=== PATIENT | female | born 1980 | race Caucasian/White ===

== ENCOUNTER 2018-06-25 08:25 | Emergency (ER) | payer BC ==
[2018-06-25 08:47] VITALS: TEMP 97.6
[2018-06-25] MEDS ORDERED: Lidocaine 2% Inj (20ml) INFIL ONE (09:28)
[2018-06-25] MEDS ORDERED: Lidocaine 2% Inj (20ml) ONE (09:35)
[2018-06-25 10:55] VITALS: BP 105/75; PULSE 75; RESP 16; O2SAT 99
--- NOTE | 2018-06-25 12:46 | ED PDOC ---
Upper Extremity Pain/Injury Time Seen by Provider: 06/25/18 09:05 Chief Complaint (Nursing): Upper Extremity Problem/Injury Chief Complaint (Provider): Laceration on Right Hand History Per: Patient History/Exam Limitations: no limitations Onset/Duration Of Symptoms: Hrs Current Symptoms Are (Timing): Still Present Quality: "Pain" Additional Complaint(s): 37 year old female presents to the ED for an evaluation of right hand injury onset today morning. Patient reports she sustained a laceration on her right hand after she cut her hand on the sharp part of the locker. The bleeding stopped and she denies of any other injuries, weakness, numbness or tingling. Otherwise, her vaccinations are UTD. PMD: [place] Past Medical History Reviewed: Historical Data, Nursing Documentation, Vital Signs Vital Signs: Last Vital Signs Temp 97.6 F 06/25/18 08:46 Pulse 75 06/25/18 10:55 Resp 16 06/25/18 10:55 BP 105/75 06/25/18 10:55 Pulse Ox 99 06/25/18 10:55 - Medical History PMH: No Chronic Diseases - Surgical History Surgical History: (1x) - Family History Family History: States: Unknown Family Hx - Social History Current smoker - smoking cessation education provided: No Alcohol: None Drugs: Denies - Home Medications Home Medications: Ambulatory Orders Medication Instructions Recorded RX: No Known Home Med 06/25/18 - Allergies Allergies/Adverse Reactions: Allergies Allergy/AdvReac Type Severity Reaction Status Date / Time No Known Allergies Allergy Verified 06/25/18 08:40 Review of Systems ROS Statement: Except As Marked, All Systems Reviewed And Found Negative Constitutional: Negative for: Fever, Chills Respiratory: Negative for: Cough, Shortness of Breath Skin: Positive for: Other (laceraiton on right hand) Neurological: Negative for: Weakness, Numbness Physical Exam - Reviewed Nursing Documentation Reviewed: Yes Vital Signs Reviewed: Yes - Physical Exam Appears: Positive for: Well, Non-toxic, No Acute Distress Head Exam: Positive for: ATRAUMATIC, NORMAL INSPECTION, NORMOCEPHALIC Skin: Positive for: Normal Color, Warm, Dry. Negative for: Rash Eye Exam: Positive for: Normal appearance, EOMI Extremity: Positive for: Capillary Refill (normal), Other (on right hand there is 2cm linear laceration on dorsum aspect of right hands, no bleeding). Negative for: Deformity Neurologic/Psych: Positive for: Alert, Oriented (x3). Negative for: Motor/Sensory Deficits - ECG O2 Sat by Pulse Oximetry: 99 (RA) Pulse Ox Interpretation: Normal Medical Decision Making Medical Decision Making: Time: 927 Impression: laceration on right hand Plan: --Lidocaine 2% 20ml vial 10ml --Reevaluation PROCEDURE: LACERATION REPAIR Performed by the emergency provider Time out: 105 Location: right hand Length: 2 cm Description: clean wound edges, no foreign bodies Distal CMS: Normal. No deficits. Neurovascularly intact. Anesthesia: Lidocaine 2% Preparation: The wound was cleaned with NS and [place]. The area was prepped and draped in the usual sterile fashion. Exploration: The wound was explored and no foreign bodies were found. Procedure: The wound was closed with 4:0 nylon. There was {good / appropriate / adequate / loose} approximation. In total, 2 were used. Post-Procedure: Good closure and hemostasis. The patient tolerated the procedure well and there were no complications. CSM remains intact. Post procedure dressing applied. Scribe Attestation: Documented by Licha Ortega, acting as a scribe for Travis Andres MD. Provider Scribe Attestation: All medical record entries made by the Scribe were at my direction and personally dictated by me. I have reviewed the chart and agree that the record accurately reflects my personal performance of the history, physical exam, medical decision making, and the department course for this patient. I have also personally directed, reviewed, and agree with the discharge instructions and disposition. Procedures - Time-Out Type of Procedure: Laceration Repair Site of Procedure: dorsum of right hand Correct Patient: Yes Correct Procedure: Yes Correct Site Marked: Yes Physician Name: Dmitry - Laceration/Wound Repair Right Dorsal Hand Wound Length (cm): 2 Wound's Depth, Shape: linear Wound Explored: clean Suture Size/Type: nylon Number of Sutures: 2 Deep Layer Suture Size/Type: 4:0 Wound Complexity: Simple Disposition - Clinical Impression Clinical Impression: Laceration of hand - Patient ED Disposition Is Patient to be Admitted: No Counseled Patient/Family Regarding: Studies Performed, Diagnosis, Need For Followup - Disposition Referrals: [facility] [Outside] Disposition: Routine/Home Disposition Time: 10:55 Condition: GOOD Additional Instructions: Follow up with your PCP for suture removal in 7-10 days DEVANTE JIMENEZ, thank you for letting us take care of you today. Your provider was Travis Andres MD and you were treated for RT HAND INJURY. The emergency medical care you received today was directed at your acute symptoms. If you were prescribed any medication, please fill it and take as directed. It may take several days for your symptoms to resolve. Return to the Emergency Department if your symptoms worsen, do not improve, or if you have any other problems. Please contact your doctor or call one of the physicians/clinics you have been referred to that are listed on the Patient Visit Information form that is included in your discharge packet. Bring any paperwork you were given at discharge with you along with any medications you are taking to your follow up visit. Our treatment cannot replace ongoing medical care by a primary care provider outside of the emergency department. Thank you for allowing the [facility] team to be part of your care today. If you had an X-Ray or CT scan: A Radiologist will review the ED reading if any change in treatment is needed we will contact you. If you had a blood, urine, or wound culture: It will take several days for the results, if any change in treatment is needed we will contact you. If you had an STI test: It will take 48 hours for the results. Please call after 1 week if you have not heard back. Instructions: Laceration Repair With Stitches (DC) Forms: [facility] ED School/Work Excuse
== END 2018-06-25 10:56 | disposition home or self-care (01) ==
LOC: H.ER 08:25
DX: S61.411A Laceration without foreign body of right hand, initial encounter (principal); W26.8XXA Contact with other sharp object(s), not elsewhere classified, initial encounter